=== PATIENT | female | born 1970 | race Caucasian/White ===

== ENCOUNTER 2017-05-12 17:47 | Emergency (ER) | payer OTHER ==
[2017-05-12 18:09] VITALS: BP 124/79
--- NOTE | 2017-05-12 19:20 | EDM.PDOC ---
ED HPI GENERAL MEDICAL PROBLEM - General Chief Complaint: Genitourinary Problem Stated Complaint: UNABLE TO URINATE Time Seen by Provider: 05/12/17 19:03 Source of Information: Reports: Patient, Family (), RN Notes Reviewed History Limitations: Reports: No Limitations - History of Present Illness INITIAL COMMENTS - FREE TEXT/NARRATIVE: The patient states that she and her are on a road trip from [place], although they are most recently driving from [place]. The patient states that she had generalized malaise yesterday, including some nausea, but no recent fever, chills, cough, chest pain, dyspnea, vomiting, diarrhea, or urinary symptoms. The patient suffers from chronic constipation. She states that she has been unable to urinate all day today, with the exception of only a few drops, but she has not had any relief. She also reports generalized abdominal pain that began this morning. It is sharp and burning in character. It is constant, but made worse with movement. The pain radiates down to her genital area. She admits to lower back pain, but states that she has chronic lower back pain due to scoliosis, and that the pain she is currently experiencing is no different than her usual The patient denies having taken any recent antihistamines or other anticholinergic medications. The patient has uterine didelphys, by: S, with complete vaginal septum, however , as far as the patient is aware, she does not have any urethral or ureteral abnormalities. No prior similar symptoms. Lower Abdomen Pain Score (Numeric/FACES): 7 - Related Data Allergies Allergy/AdvReac Type Severity Reaction Status Date / Time Sulfa (Sulfonamide Allergy Swelling Verified 05/12/17 18:02 Antibiotics) Home Meds: Home Meds ALPRAZolam [Xanax] 0.5 mg PO ASDIRECTED PRN 05/12/17 [History] Levofloxacin [Levaquin] 750 mg PO QPM #6 tablet 05/12/17 [Rx] Zolpidem Tartrate [Ambien] 5 mg PO BEDTIME 05/12/17 [History] Past Medical History [employer] History: Reports: , Other (See Below) (Uterus didelphys, bicollis, with complete vaginal septum) : 3 Para: 3 Musculoskeletal History: Reports: Back Pain, Chronic (lower, due to scoliosis) Psychiatric History: Reports: Anxiety, Other (See Below) (Insomnia) - Infectious Disease History Infectious Disease History: Reports: Chicken Pox - Past Surgical History GI Surgical History: Reports: Appendectomy Female Surgical History: Reports: Section (x 2) Social & Family History - Tobacco Use Smoking Status *Q: Never Smoker Second Hand Smoke Exposure: No - Caffeine Use Caffeine Use: Reports: Soda - Alcohol Use Alcohol Use History: Yes Alcohol Use Frequency: Socially - Recreational Drug Use Recreational Drug Use: No - Living Situation & Occupation Living situation: Reports: , with Spouse, with Family (1 daughter) Occupation: Employed ([employer] teacher) ED ROS GENERAL - Review of Systems Review Of Systems: See Below Constitutional: Reports: No Symptoms HEENT: Reports: No Symptoms Respiratory: Reports: No Symptoms Cardiovascular: Reports: No Symptoms Endocrine: Reports: No Symptoms GI/Abdominal: Reports: Constipation (chronic) : Reports: No Symptoms Musculoskeletal: Reports: No Symptoms Skin: Reports: No Symptoms Neurological: Reports: No Symptoms Psychiatric: Reports: No Symptoms Hematologic/Lymphatic: Reports: No Symptoms Immunologic: Reports: No Symptoms ED EXAM, GENERAL - Physical Exam Exam: See Below Exam Limited By: No Limitations General Appearance: Alert, WD/WN, No Apparent Distress Eye Exam: Bilateral Eye: Normal Inspection Ears: Normal External Exam, Hearing Grossly Normal Nose: Normal Inspection, No Blood Throat/Mouth: Normal Inspection, Normal Lips, Normal Voice, No Airway Compromise Head: Atraumatic, Normocephalic Neck: Normal Inspection, Full Range of Motion Respiratory/Chest: No Respiratory Distress, Lungs Clear, Normal Breath Sounds, No Accessory Muscle Use Cardiovascular: Normal Peripheral Pulses, Regular Rate, Rhythm, No Gallop, No JVD, No Murmur, No Rub Peripheral Pulses: 4+: Radial (L), Radial (R) GI/Abdominal: Normal Bowel Sounds, Soft, No Organomegaly, No Distention, No Abnormal Bruit, No Mass, Tender (Considerable, generalized, non-focal). No: Rebound (Female) Exam: Deferred Rectal (Female) Exam: Deferred Back Exam: Normal Inspection, Full Range of Motion, CVA Tenderness (L), CVA Tenderness (R) (right > left) Extremities: Normal Inspection, Normal Range of Motion, No Pedal Edema, Normal Capillary Refill Neurological: Alert, Oriented, Normal Cognition, No Motor/Sensory Deficits Psychiatric: Normal Affect Skin Exam: Warm, Dry, Intact, Normal Color, No Rash Lymphatic: No Adenopathy Course - Vital Signs Last Recorded V/S: Last Vital Signs Temp 38.0 C 05/12/17 18:03 Pulse 91 05/12/17 18:03 Resp 16 05/12/17 18:03 BP 124/79 05/12/17 18:03 Pulse Ox 100 05/12/17 18:03 - Orders/Labs/Meds Orders: Active Orders 24 hr Category Date Time Status CULTURE URINE [RM] Stat Lab 05/12/17 20:11 Uncollected Labs: Laboratory Tests 05/12/17 05/12/17 Range/Units 19:00 19:00 Urine Color Yellow (Yellow) Urine Appearance Clear (Clear) Urine pH 7.0 (5.0-8.0) Ur Specific [place] 1.025 (1.005-1.030) Urine Protein 3+ H (Negative) Urine Glucose (UA) Negative (Negative) Urine Ketones Negative (Negative) Urine Occult Blood 3+ H (Negative) Urine Nitrite Negative (Negative) Urine Bilirubin Negative (Negative) Urine Urobilinogen 0.2 (0.2-1.0) Ur Leukocyte Esterase 1+ H (Negative) Urine RBC 20-30 H (0-5) /hpf Urine WBC 40-50 H (0-5) /hpf Urine WBC Clumps Moderate (NOT SEEN) /hpf Ur Epithelial Cells Not seen (0-5) /hpf Urine Bacteria Many H (FEW) /hpf Urine Mucus Few (FEW) /hpf Urine HCG, Qual Negative (NEGATIVE) Meds: Medications Discontinued Medications Generic Name Dose Route Start Last Admin Trade Name Giancarlo PRN Reason Stop Dose Admin Levofloxacin 500 mg 05/12/17 20:13 Levaquin PO 05/12/17 20:14 ONETIME STA Levofloxacin 750 mg 05/12/17 20:18 Levaquin PO 05/12/17 20:19 ONETIME STA - Re-Assessments/Exams Free Text/Narrative Re-Assessment/Exam: 05/12/17 19:00 The patient received a quick catheter, recovering approximately 120 mL of cloudy , malodorous urine. Urinalysis and urine test of been ordered. 05/12/17 20:13 The patient's urinalysis is consistent with a UTI. Because she has bilateral flank pain, the patient may have pyelonephritis. Fluoroquinolones are the only oral antimicrobial recommended for the outpatient empiric treatment of acute uncomplicated pyelonephritis. I have ordered Levaquin 750 mg po here. I believe the patient can safely be discharged home with an e-prescription for Levaquin. I will give her a number for the clinic that she or her PCP back in [place] can call to check on the urine culture results on 05/15/2017. Departure - Departure Time of Disposition: 20:27 Disposition: Home, Self-Care 01 Condition: Fair Clinical Impression: Pyelonephritis - Discharge Information Referrals: PCP,Not In Area [Primary Care Provider] - Kathryn Freedman PA-C [Physician Mule Developer] - Forms: ED Department Discharge Additional Instructions: You were seen in the emergency room for inability to urinate today. Workup in the ER included a urinalysis and urine test. Your urinalysis confirms that you have a urinary tract infection. A sample of your urine has been sent for culture. You have been started on the antibiotic Levaquin. Take one tablet each evening, starting tomorrow, 05/13/2017. Finish the entire prescription unless told otherwise by a doctor. Stay adequately hydrated. Contact the office of Kathryn Freedman this coming 05/15/2017, to check on your urine culture results, to make sure that you are on the correct antibiotic. If any other problems, please do not hesitate to return to the ER. - My Orders Last 24 Hours: My Active Orders 05/12/17 20:11 CULTURE URINE [RM] Stat - Assessment/Plan Last 24 Hours: My Active Orders 05/12/17 20:11 CULTURE URINE [RM] Stat
[2017-05-12] MEDS ORDERED: Levofloxacin 500 MG Tab PO STA (20:13)
[2017-05-12] MEDS ORDERED: Levofloxacin 750 MG Tab PO STA (20:18)
== END 2017-05-12 21:11 | disposition home or self-care (01) ==
LOC: JD.ED 17:47
DX: N12 Tubulo-interstitial nephritis, not specified as acute or chronic (principal); M41.9 Scoliosis, unspecified; G89.29 Other chronic pain; F41.9 Anxiety disorder, unspecified; Z88.2 Allergy status to sulfonamides; Z79.899 Other long term (current) drug therapy
CPT/HCPCS: 51798; 81001; 81025; 87086; 87088; 87186; 99284; A9270; P9612; 99283